=== PATIENT | female | born 1985 ===

== ENCOUNTER → 2019-12-29 | Outpatient (CLI) | payer SELFPAY ==
--- NOTE | 2019-12-29 16:34 | Diagnostic Imaging Report ---
PROCEDURE: US OB SINGLE FETUS <14 WKS. TECHNIQUE: Multiple real-time grayscale images were obtained over the gravid uterus in various projections. INDICATION: Unknown dates. COMPARISON: None. FINDINGS: There is a large heterogeneous hypoechoic lesion in the myometrium of the fundal uterus measuring 7.1 x 6.6 x 5.5 cm, which has the appearance of a fibroid. There is a gestational sac with a normal ovoid morphology. A pole and a yolk sac are seen. The pole measures 1.4 cm in length, corresponding with 7 weeks and 6 days. heart rate measures 173 BPM. Estimated date of delivery by today's ultrasound is 08/10/2020. The right ovary appears normal in size with normal vascularity. The structure thought to represent the left ovary also appears normal in size. No free fluid is seen. IMPRESSION: 1. Single live intrauterine gestation measuring at 7 weeks and 6 days. heart rate is normal. 2. Heterogeneous mass in the uterus, likely a fibroid. Dictated by: Dictated on workstation # [id number]
== END ==
LOC: RAD 13:33
PROVIDERS: ATTEND Family Medicine
DX: O26.891 Other specified pregnancy related conditions, first trimester (principal); N85.8 Other specified noninflammatory disorders of uterus; Z3A.01 Less than 8 weeks gestation of pregnancy
CPT/HCPCS: 76801

== ENCOUNTER 2020-07-18 14:58 | Inpatient (IN) | payer MEDICAID, OTHER ==
[~2020-07-18] VITALS: Ht 157.4 cm; Wt 98.2 kg
[2020-07-18] VITALS (14 sets, daily range): BP systolic 124–148; BP diastolic 62–87
[2020-07-18] MEDS ORDERED: AMPICILLIN FOR IV USE 2,000 MG in WATER (STERILE) FOR INJECTION 14.8 ML IV NR (15:15)
--- NOTE | 2020-07-18 15:20 | NUR ---
GENOVEVA ALY presented to unit via AMBULATION from ED, accompanied by S/O, with c/o LABOR. GENOVEVA ALY weighed, gowned, voided, and to bed. EFHM and TOCO applied, VS taken. GENOVEVA ALY oriented to bed controls, call light, TV, heat, and A/C controls.
[2020-07-18] MEDS ORDERED: D5 LR IV SOLUTION 1,000 ML IV ONE (15:45)
[2020-07-18] MEDS: D5 LR IV SOLUTION 1,000 ML IV SCH (15:57)
[2020-07-18 16:10] LABS: BASOPHILS % (AUTO) 0 % (0-10); EOSINOPHILS # (AUTO) 0.1 10^3/uL (0.0-0.3); EOSINOPHILS % (AUTO) 1 % (0-10); HEMATOCRIT 37 % (35-52); HEMOGLOBIN 12.6 G/DL (11.5-16.0); LYMPHOCYTES # (AUTO) 1.6 X 10^3 (1.0-4.0); LYMPHOCYTES % (AUTO) 14 % (12-44); MEAN CORPUSCULAR HEMOGLOBIN 27 PG (25-34); MEAN CORPUSCULAR HGB CONC 34 G/DL (32-36); MEAN CORPUSCULAR VOLUME 80 FL (80-99); MONOCYTES # (AUTO) 0.9 X 10^3 (0.0-1.0); MONOCYTES % (AUTO) 8 % (0-12); NEUTROPHILS # (AUTO) 8.6 X 10^3 (1.8-7.8); NEUTROPHILS % (AUTO) 77 % (42-75); PLATELET COUNT 271 10^3/uL (130-400); WHITE BLOOD COUNT 11.2 10^3/uL (4.3-11.0)
[2020-07-18] MEDS ORDERED: AMPICILLIN FOR IV USE 1,000 MG/VIAL ONE (19:27)
[2020-07-18] MEDS ORDERED: WATER (STERILE) FOR INJECTION 10 ML ONE (19:27)
[2020-07-18] MEDS: AMPICILLIN FOR IV USE 1,000 MG in WATER (STERILE) FOR INJECTION 7.4 ML IV SCH ×2 (19:45→23:59)
[2020-07-19] VITALS (17 sets, daily range): BP systolic 112–142; BP diastolic 60–89
[2020-07-19] MEDS: D5 LR IV SOLUTION 1,000 ML IV SCH ×3 (00:01→17:40)
[2020-07-19] MEDS: AMPICILLIN FOR IV USE 1,000 MG in WATER (STERILE) FOR INJECTION 7.4 ML IV SCH ×5 (04:10→22:53)
[2020-07-20] VITALS (35 sets, daily range): BP systolic 113–148; BP diastolic 67–91
[2020-07-20] MEDS: D5 LR IV SOLUTION 1,000 ML IV SCH (01:46)
[2020-07-20] MEDS: AMPICILLIN FOR IV USE 1,000 MG in WATER (STERILE) FOR INJECTION 7.4 ML IV SCH ×2 (01:53→05:49)
[2020-07-20] MEDS ORDERED: OXYTOCIN PRE-MIX DRIP 500 ML IV ONE (05:43)
[2020-07-20] MEDS ORDERED: OXYTOCIN PRE-MIX DRIP 500 ML IV SCH ×2 (06:11→09:45)
[2020-07-20] MEDS ORDERED: MINERAL OIL CONCENTRATE 99.9% 15 ML UDC TOP PRN (06:15)
[2020-07-20] MEDS ORDERED: LACTATED RINGERS 1,000 ML IV ONE ×2 (06:35→08:09)
[2020-07-20] MEDS ORDERED: fentaNYL 2 mcg/ml BUPIVA 0.125 100 ML ONE (06:44)
[2020-07-20] MEDS ORDERED: BUPIVACAINE 0.25% 30 ML (SENSORCAINE) VIAL ONE (07:23)
[2020-07-20] MEDS ORDERED: fentaNYL INJECTION 100 MCG/2 ML AMP ONE (07:23)
--- NOTE | 2020-07-20 07:30 | NUR ---
0730 Shaniqua GALLEGO CRNA here for epidural placement. Procedure explained, consent reviewed and signed by anesthesia. Questions answered to patient's satisfaction. Time out taken to verify correct patient/procedure. 0736 Patient up to side of bed, assisted into sitting position. 0739 Betadine prep done x3 and sterile drape applied. 0740 Local done, see anesthesia record. 0745 Test dose given, see anesthesia record for drug and dosage. 0746 Test dose #2 given, see anesthesia record for drug and dosage. Epidural catheter secured in place. Epidural placement complete. 0749 Assisted back into bed, monitors adjusted. Epidural dosed, see anesthesia record. Epidural infusing @10cc/hr stated per pump; see EMAR for further. Patient tolerated procedure well.
[2020-07-20] MEDS ORDERED: fentaNYL 2 mcg/ml BUPIVA 0.125 100 ML IV SCH (08:09)
[2020-07-20] MEDS ORDERED: CATHETER FLUSH 10 ML SYR IV PRN (08:15)
[2020-07-20] MEDS ORDERED: NALOXONE 0.4 MG/ML 1 ML (NARCAN) VIAL IV PRN (08:15)
[2020-07-20] MEDS ORDERED: DOXY25TA56 PO (08:23)
[2020-07-20] MEDS ORDERED: PREN-142 PO (08:23)
[2020-07-20] MEDS ORDERED: PYRI50TA PO (08:23)
--- NOTE | 2020-07-20 08:23 | History & Physical-OB ---
OB - Chief Complaint & HPI Date/Time Date of Admission: Date of Admission: Jul 19, 2020 at 11:01 Date seen by a Provider: Jul 19, 2020 Time Seen by a Provider: 08:00 Chief Complaint/History OB-Reason for Admission/Chief: Onset of Labor Hx : 2 Hx Para: 1 Expected Date of Delivery: Aug 10, 2020 Gestational Age in Weeks: 36 Gestational Age in Days: 5 Indication for induction: other ( labor) Other reason for admission: at 36w5d presented to clinic with complaint of contractions starting around 3 am on 07/19, found to dilated to 6 cm and sent to labor and delivery. Contractions have spaced out and she has not made further cervical change. History of Labs O+, antibody neg, RI. HIV/hepB/RPR NR. Glucola nml. GBS pos. Allergies and Home Medications Allergies Coded Allergies: No Known Drug Allergies (Unverified , 04/04/16) Home Medications No Active Prescriptions or Reported Meds Patient Home Medication List Home Medication List Reviewed: Yes OB - History Hx of Present Care: Yes (Limited, had two first trimester visits, then [place] out of country until third trimester.) Ultrasounds: Normal mid trimester US (incomplete- brain and cord insert subopt imally seen due to US not done until 36 weeks) Information Induced Hypertension: No Maternal Gestational Diabetes: No Hemorrhage: No Obstetrical History Hx : 2 Hx Para: 1 Hx # Term Pregnancies: 1 Hx # Pregnancies: 0 Number of Living Children: 1 Hx Termination: No Hx Multiple Gestation: No Hx Ectopic : No Hx Stillbirth: No Hx Complication: No Hx Induced Hypertens: No Hx Maternal Gestational Diabet: No Hx Hemorrhage: No Delivery History Hx Dystocia: No Hx Forceps Assisted Delivery: No Hx Vacuum Extraction Assisted: No Hx Placenta Abnormality: No Hx Distress: No Hx Large For Gestational Age I: No Hx Small for Gestational Age I: No Hx Section: No Hx Vaginal Delivery Post C-Sec: No Hx Blood Disorders: No Adverse Rxn to Tranfusion: No Patient Past Medical History None Social History/Family History HIV/AIDS: No Recent Infectious Disease Expo: No Sexually Transmitted Disease: No Alcohol Use: Denies Use Recreational Drug Use: No Smoking Cessation: Never smoker Immunizations Tetanus Booster (TDap): Less than 5yrs (06/28/20) Rubella: immune RPR/VDRL: Negative GBS Status: Positive HBsAG: Negative OB - Admission Exam Physical Exam Vitals: Vital Signs 07/20/20 07/20/20 06:27 06:55 Temp 36.8 Pulse 78 Resp 18 B/P (MAP) 131/74 (93) Pulse Ox 98 O2 Delivery Room Air HEENT: NCAT Abdomen: Non tender Extremities: Edema (trace) Cervical Dilatation: 7cm Effacement: 25% Station: -3 Membranes: Intact Heart Rate: 140's Accelerations: Accelerations Present Decelerations: No Decelerations Contractions on Admission: >10 Minutes Apart OB - Assessment/Plan/Diagnosis Assessment Assessment: labor Admission Dx labor/advanced cervical dilation 36 weeks gestation GBS positive Admission Status: Inpatient Order (span 2 midnights) Reason for Inpatient Admission: Anticipated labor, delivery and course Plan Plan: Expectant Management (Given status, will monitor closely and will not augment until full term status, ampicillin for GBS pos.) AMANDA PETE MD Jul 20, 2020 08:23
--- NOTE | 2020-07-20 08:32 | Labor Progress Note ---
Labor Progress Note Labor Progress Note Date Seen by Provider: Jul 20, 2020 Time Seen by Provider: 08:00 Subjective: Pt denies complaints. Objective: (Can we insert 24 hour vitals here?) Cervical exam: /- Consistency: soft Position: anterior Presentation: vertex heart tones: 150 beats per minute, moderate variability, reactive Tocometer: 1-2 ctx/10 minutes Assessment/Plan: Yaa Wilkes is a 35 /Para 2 / 1,Gestational Age (wks)37w0d here for advanced cervical dilation with contractions, now full term. CEFM/TOCO Pitocin for augmentation Anesthesia: Epidural Anticipate vaginal delivery. Vitals - Labs Vital Signs - I&O Vital Signs Date Time Temp Pulse Resp B/P (MAP) Pulse Ox O2 Delivery O2 Flow Rate FiO2 07/20/20 06:55 78 18 131/74 (93) Room Air 07/20/20 06:40 83 18 133/83 (100) Room Air 07/20/20 06:27 36.8 82 18 126/91 (103) 98 Room Air 07/19/20 20:31 36.9 88 18 139/88 (105) Room Air 07/19/20 17:15 36.3 82 18 126/67 (86) Room Air 07/19/20 15:10 106 18 131/73 (92) Room Air 07/19/20 14:10 81 18 133/75 (94) Room Air 07/19/20 13:10 95 18 124/69 (87) Room Air 07/19/20 12:10 91 18 122/78 (93) Room Air 07/19/20 11:10 90 18 125/60 (81) Room Air 07/19/20 10:10 88 16 128/72 (90) Room Air 07/19/20 09:10 100 16 127/80 (96) Room Air I & O 07/20/20 07:00 Intake Total 1022.2 ml Balance 1022.2 ml AMANDA PETE MD Jul 20, 2020 08:31
--- NOTE | 2020-07-20 09:19 | OB Labor & Delivery Record ---
Vag Delivery Note Vag Delivery Note Date of Delivery: 07/20/20 Preoperative Diagnosis: Yaa Wilkes is a 35 /Para 2 / 1,Gestational Age (wks) 37 weeks 0 days Postoperative Diagnosis: Same Surgeon: AMANDA PETE Anesthesia: Epidural Delivery Type: Findings: Viable male , apgars 8/9, weight pending Lacerations: periurethral abrasion, left vaginal wall Intact placenta with 3 vessel cord. No nuchal cord, body cord or shoulder dystocia Estimated Blood Loss: 200 ml Complications: None Condition: Stable Description of Procedure: The patient is a 35 year old female who presented in labor at 36w5d, she was monitored and slowly progressed from 6 to 7, when she reached 37 weeks, AROM done and pitocin started. Her labor course was remarkable for rapid progression after AROM. She progressed to complete dilatation and began to push. She was then set up for delivery. The infant's head was delivered atraumatically in the BOBBI position. The shoulders and remainder of the 's body were then delivered without difficulty. Upon delivery, the was vigorous and placed on maternal abdomen. After a delay, the cord was doubly clamped and cut and the infant was handed off to the pediatric staff. An intact placenta with 3-vessel cord delivered via Mary and there was found to be minimal bleeding.~ Vigorous fundal massage was performed and the fundus was found to be firm. IV oxytocin was given. Examination of the vagina and perineum revealed a left vaginal wall laceration repaired in the simple running fashion with 3-0 vicryl rapide suture. Following the repair, sponge, instrument and needle counts were correct. Mom and baby were both in stable condition in the labor suite. Vitals - Labs Vital Signs - I&O Vital Signs Date Time Temp Pulse Resp B/P (MAP) Pulse Ox O2 Delivery O2 Flow Rate FiO2 07/20/20 06:55 78 18 131/74 (93) Room Air 07/20/20 06:40 83 18 133/83 (100) Room Air 07/20/20 06:27 36.8 82 18 126/91 (103) 98 Room Air 07/19/20 20:31 36.9 88 18 139/88 (105) Room Air 07/19/20 17:15 36.3 82 18 126/67 (86) Room Air 07/19/20 15:10 106 18 131/73 (92) Room Air 07/19/20 14:10 81 18 133/75 (94) Room Air 07/19/20 13:10 95 18 124/69 (87) Room Air 07/19/20 12:10 91 18 122/78 (93) Room Air 07/19/20 11:10 90 18 125/60 (81) Room Air 07/19/20 10:10 88 16 128/72 (90) Room Air I & O 07/20/20 06:59 Intake Total 1022.2 ml Balance 1022.2 ml AMANDA PETE MD Jul 20, 2020 09:19
[2020-07-20] MEDS ORDERED: MEASLES,MUMPS,RUBELLA 1 EA INJ SQ ONE (09:45)
[2020-07-20] MEDS ORDERED: BENZOCAINE/MENTHOL (DERMOPLAST) 60 ML CAN TP PRN (09:45)
[2020-07-20] MEDS ORDERED: WITCH HAZEL(TUCKS) 40 EA JAR TOP PRN (09:45)
[2020-07-20] MEDS ORDERED: TETANUS,DIPTH,PERTUSS P/F (BOOSTRIX) 0.5 ML VIAL IM ONE (09:45)
--- NOTE | 2020-07-20 10:39 | NUR ---
REFER TO LABOR FLOW SHEET.
[2020-07-20] MEDS ORDERED: IBUPROFEN 600 MG (MOTRIN) TAB PO SCH (12:00)
--- NOTE | 2020-07-20 13:00 | NUR ---
PT TRANSFERRED FROM -318 TO -309 VIA AMBULATORY IN STABLE CONDITION ACCOMPANIED BY THIS RN, , AND FOB. PT REQUEST NO NEEDS AT THIS TIME. CALL LIGHT IN REACH.
[2020-07-20] MEDS ORDERED: CATHETER FLUSH 10 ML SYR IV SCH ×2 (14:00)
[2020-07-20] MEDS ORDERED: DOCUSATE SODIUM 100 MG (COLACE) CAP PO SCH (21:00)
[2020-07-21 01:00] VITALS: BP 126/90
[2020-07-21 05:15] VITALS: BP 126/90
[2020-07-21 05:18] LABS: BASOPHILS % (AUTO) 0 % (0-10); EOSINOPHILS # (AUTO) 0.1 10^3/uL (0.0-0.3); EOSINOPHILS % (AUTO) 1 % (0-10); HEMATOCRIT 33 % (35-52); HEMOGLOBIN 10.8 G/DL (11.5-16.0); LYMPHOCYTES # (AUTO) 2.8 X 10^3 (1.0-4.0); LYMPHOCYTES % (AUTO) 20 % (12-44); MEAN CORPUSCULAR HEMOGLOBIN 27 PG (25-34); MEAN CORPUSCULAR HGB CONC 33 G/DL (32-36); MEAN CORPUSCULAR VOLUME 81 FL (80-99); MEAN PLATELET VOLUME 10.9 FL (7.4-10.4); MONOCYTES # (AUTO) 0.9 X 10^3 (0.0-1.0); MONOCYTES % (AUTO) 6 % (0-12); NEUTROPHILS # (AUTO) 10.3 X 10^3 (1.8-7.8); NEUTROPHILS % (AUTO) 73 % (42-75); PLATELET COUNT 236 10^3/uL (130-400); WHITE BLOOD COUNT 14.1 10^3/uL (4.3-11.0)
[2020-07-21 06:15] LABS: ATYPICAL LYMPHOCYTES 4 %; BAND NEUTROPHILS 1 %; EOSINOPHILS % (MANUAL) 1 %; LYMPHOCYTES % (MANUAL) 15 %; MONOCYTES % (MANUAL) 4 %; NEUTROPHILS % (MANUAL) 75 %; POLYCHROMASIA SLIGHT
[2020-07-21 06:16] LABS: ANISOCYTOSIS SLIGHT
--- NOTE | 2020-07-21 08:38 | Discharge Inst-Women's Service ---
Discharge Inst-Women's Serv Depart Medication/Instructions Instructions may have ibuprofen [id number] 200 mg tablets, 2 or 3 every 6 hours as needed for uterine cramps. Problems Reviewed?: Yes Consults/Follow Up Additional Follow Up: Yes (Dr. Huitron in 6 weeks) Activity Driving Instructions: No Driving for 1 Week Nothing Inside Vagina: No Mead (for 6 weeks) Diet Discharge Diet: Regular Diet Return to The Hospital For: as below Symptoms to Report to : Bleeding Excessive, Pain Increased, Fever Over 101 Degrees F, Vaginal Discharge Foul For Any Problems or Questions: Contact Your Physician SAMANTHA NORWOOD MD Jul 21, 2020 08:38
--- NOTE | 2020-07-21 08:41 | Discharge Summary ---
Diagnosis/Chief Complaint Date of Admission Jul 19, 2020 at 11:01 Date of Discharge July 21, 2020 Admission Diagnosis Admission Diagnosis 1. Intrauterine at 36 weeks Discharge Diagnosis 1. Intrauterine at 36 weeks gestation Chief Complaint/HPI Chief Complaint/HPI 35-year-old 2 now term 2 who initially presented to labor and delivery d uring the morning of July 19, 2020. She was at 36 weeks and 5 days gestation. She presented with 3 cm dilated and went on to 6 cm dilated. She ultimately was For labor and delivery. Discharge Summary-OBS Procedures 1. Epidural per anesthesia 2. Spontaneous vaginal delivery, per Dr. Huitron Discharge Physical Examination Allergies: Coded Allergies: No Known Drug Allergies (Unverified , 04/04/16) Vitals & I&Os Vital Sign - Last 12Hours Date Time Temp Pulse Resp B/P (MAP) Pulse Ox O2 Delivery O2 Flow Rate FiO2 07/21/20 05:15 36.6 90 16 126/90 (102) 99 Room Air General Appearance: No Acute Distress Respiratory: Clear to Auscultation Cardiovascular: Regular Rate Abdominal: Soft (with uterus firm) Skin: No Rashes Hospital Course Was the Problem List Reviewed?: Yes patient was admitted and ultimately underwent labor coarse. She received epidural per anesthesia and tolerated well. Ultimately she went on to deliver spontaneous vaginal during the morning of July 20, 2020. Patient delivered a term viable male with Apgars of 8 at 1 minute and 9 at 5 minutes. She was noted to have a periurethral tear but no perineal lacerations. Following delivery she underwent routine care orders. She had no complications following delivery. There was no shortness of breath or leg pain. She tolerated regular diet and was ambulatory. Her hemoglobin day after delivery was 10.8 compared to admission of 12.6. She was eager for dismissal in the morning of July 21. Labs Laboratory Tests 07/21/20 05:10: White Blood Count 14.1H, Red Blood Count 4.06L, Hemoglobin 10.8L, Hematocrit 33L , Mean Corpuscular Volume 81, Mean Corpuscular Hemoglobin 27, Mean Corpuscular Hemoglobin Concent 33, Red Cell Distribution Width 15.0H, Platelet Count 236, Mean Platelet Volume 10.9H, Neutrophils (%) (Auto) 73, Lymphocytes (%) (Auto) 20, Monocytes (%) (Auto) 6, Eosinophils (%) (Auto) 1, Basophils (%) (Auto) 0, Neutrophils # (Auto) 10.3H, Lymphocytes # (Auto) 2.8, Monocytes # (Auto) 0.9, Eosinophils # (Auto) 0.1, Basophils # (Auto) 0.0, Neutrophils % (Manual) 75, Lymphocytes % (Manual) 15, Monocytes % (Manual) 4, Eosinophils % (Manual) 1, Band Neutrophils 1, Atypical Lymphocytes 4, Polychromasia SLIGHT, Basophilic Stippling SLIGHT, Anisocytosis SLIGHT Discharge Instructions to patient/family Please see electronic discharge instructions given to patient. Discharge Medications Reviewed and agree with Discharge Medication list on patient's Discharge Instruction sheet Clinical Quality Measures DVT/VTE Risk/Contraindication: Risk Factor Score Per Nursin RFS Level Per Nursing on Admit: 1=Low/No VTE PPX SAMANTHA NORWOOD MD Jul 21, 2020 08:41
[2020-07-21 09:35] VITALS: BP 122/81
--- NOTE | 2020-07-21 22:51 | Anesthesia-Regional Post-Op ---
Regional Patient Condition Mental Status: Alert, Oriented x3 Circulation: Same as Pre-Op Headache: Absent Sensation: Full Recovery Motor Block: Absent Post Op Complications Complications None Follow Up Care/Instructions Patient Instructions None needed. Anesthesia/Patient Condition Patient is doing well, no complaints, stable vital signs, no apparent adverse anesthesia problems. No complications reported per nursing. HYACINTH SANTOS CRNA Jul 21, 2020 22:51
== END 2020-07-21 14:40 | disposition home or self-care (01) | DRG 768 ==
LOC: LDRP 14:58 → WSo 14:58 → LDRP 07-19 11:00 → UNDOADMOB 07-19 11:01 → OBSVTOIN 07-19 11:01 → LDRP 07-19 11:01 → INTOOBSV 07-19 11:01 → LDRP 07-20 13:00 → UNDODISIN 07-21 14:40 → EDSTATUS 07-22 07:29
PROVIDERS: ADMIT Family Medicine; ATTEND Family Medicine
PROC: 10E0XZZ Delivery of Products of Conception, External Approach (ICD-10-PCS; principal; 2020-07-20)
PROC: 0UQG0ZZ Repair Vagina, Open Approach (ICD-10-PCS; 2020-07-20)
DX: O99.824 Streptococcus B carrier state complicating childbirth (principal); Z37.0 Single live birth; O71.4 Obstetric high vaginal laceration alone; Z3A.37 37 weeks gestation of pregnancy
CPT/HCPCS: 36415; 85007; 85025; 85027; 86850; 86900; 86901; 88307

== ENCOUNTER 2021-07-04 10:31 | Emergency (ER) | payer MEDICAID ==
[~2021-07-04] VITALS: Ht 160 cm; Wt 72.5 kg
[~2021-07-04 10:31] MED LIST: DOXY25TA56 PO; PREN-142 PO; PYRI50TA PO
[2021-07-04] MEDS ORDERED: HYDROcodone/APAP 5 MG/325 MG (LORTAB) TAB ONE (10:52)
[2021-07-04 11:00] LABS: BASOPHILS % (AUTO) 0 % (0-10); EOSINOPHILS % (AUTO) 0 % (0-10); HEMATOCRIT 48 % (35-52); HEMOGLOBIN 15.7 g/dL (11.5-16.0); LYMPHOCYTES # (AUTO) 1.1 10^3/uL (1.0-4.0); LYMPHOCYTES % (AUTO) 15 % (12-44); MEAN CORPUSCULAR HEMOGLOBIN 27 pg (25-34); MEAN CORPUSCULAR HGB CONC 32 g/dL (32-36); MEAN CORPUSCULAR VOLUME 82 fL (80-99); MEAN PLATELET VOLUME 9.8 fL (9.0-12.2); MONOCYTES # (AUTO) 0.4 10^3/uL (0.0-1.0); MONOCYTES % (AUTO) 6 % (0-12); NEUTROPHILS # (AUTO) 5.6 10^3/uL (1.8-7.8); NEUTROPHILS % (AUTO) 78 % (42-75); PLATELET COUNT 210 10^3/uL (130-400); WHITE BLOOD COUNT 7.1 10^3/uL (4.3-11.0)
[2021-07-04] MEDS ORDERED: HYDROcodone/APAP 5 MG/325 MG (LORTAB) TAB PO ONE (11:00)
--- NOTE | 2021-07-04 11:01 | Diagnostic Imaging Report ---
INDICATION: Covid positive, cough and shortness of breath. TECHNIQUE: A frontal chest was obtained at 10:54 AM. FINDINGS: The heart and mediastinal silhouette are normal in appearance. There is some minimal left perihilar infiltrate and right basilar infiltrate. There is no pneumothorax or pleural fluid. IMPRESSION: Minimal left perihilar and right basilar infiltrates, suspect pneumonia. The report was faxed to Infection Control by [email or web address]@10:59 AM. Dictated by: Dictated on workstation # [id number]
--- NOTE | 2021-07-04 11:07 | ED Cough/URI ---
General Chief Complaint: Cough/Cold/Flu Symptoms Stated Complaint: COVID +,SOB,CP,COUGH Source: patient Exam Limitations: no limitations (MELIZA MARRERO APRN) History of Present Illness Date Seen by Provider: Jul 04, 2021 Time Seen by Provider: 11:06 Initial Comments To ER with reports that she has been feeling ill for about 2 weeks, she tested positive for Covid at counts include [facility] beds at the [facility] on Thursday. Timing/Duration: getting worse Severity/Quality: dry cough Associated Symptoms: cough (MELIZA MARRERO APRN) Allergies and Home Medications Allergies Coded Allergies: No Known Drug Allergies (Unverified , 04/04/16) Home Medications Dexamethasone 6 Mg Tablet, 6 MG PO DAILY Prescribed by: MELIZA MARRERO on 07/04/21 1409 Doxylamine Succinate 25 Mg Tablet, 12.5 MG PO HS PRN for NAUSEA-1ST LINE, (Reported) Hydrocodone/Acetaminophen 1 Each Tablet, 1 TAB PO Q4H PRN for cough Prescribed by: MELIZA MARRERO on 07/04/21 1409 Pyridoxine HCl 50 Mg Tablet, 50 MG PO TID, (Reported) Patient Home Medication List Home Medication List Reviewed: Yes (MELIZA MARRERO APRN) Review of Systems Review of Systems Constitutional: see HPI, malaise, weakness EENTM: see HPI Respiratory: see HPI, cough Cardiovascular: no symptoms reported Genitourinary: no symptoms reported Musculoskeletal: no symptoms reported Skin: no symptoms reported Psychiatric/Neurological: No Symptoms Reported Hematologic/Lymphatic: No Symptoms Reported (MELIZA MARRERO APRN) Past Whbkpnt-Syaicb-Nekfbo Hx Immunizations Up To Date Tetanus Booster (TDap): Less than 5yrs (MELIZA MARRERO APRN) Seasonal Allergies Seasonal Allergies: No (MELIZA MARRERO APRN) Past Medical History Surgeries: No Respiratory: No Cardiac: No Neurological: No Reproductive Disorders: No Sexually Transmitted Disease: No HIV/AIDS: No Gastrointestinal: No Musculoskeletal: No Endocrine: No Cancer: No Psychosocial: No Integumentary: No Blood Disorders: No Adverse Reaction/Blood Tranf: No (MELIZA MARRERO APRN) Family Medical History Patient reports no known family medical history. Physical Exam Vital Signs - First Documented 07/04/21 10:37 Temp 37.1 Pulse 135 Resp 18 B/P (MAP) 160/101 (120) Pulse Ox 95 O2 Delivery Room Air (JAZ VANN MD) Capillary Refill : (MELIZA MARRERO APRN) Height: 5'4.00" Weight: 206lbs. 0.0oz. 93.300572qp; 39.63 BMI Method: General Appearance: WD/WN, no apparent distress, other (Diaphoretic. Heart rat e 127 oxygen 95% on room air blood pressure 160/101.) Eyes: Bilateral Eye Normal Inspection, Bilateral Eye PERRL, Bilateral Eye EOMI HEENT: PERRL/EOMI, normal ENT inspection Neck: non-tender, full range of motion Respiratory: no respiratory distress, no accessory muscle use Cardiovascular: no murmur, tachycardia Gastrointestinal: normal bowel sounds, non tender, soft Extremities: normal range of motion, non-tender Neurologic/Psychiatric: alert, normal mood/affect, oriented x 3 Skin: normal color, warm/dry (MELIZA MARRERO APRN) Progress/Results/Core Measures Suspected Sepsis SIRS Temperature: Pulse: Respiratory Rate: Laboratory Tests 07/04/21 10:45: White Blood Count 7.1 Blood Pressure / Mean: Laboratory Tests 07/04/21 10:45: Creatinine 0.75, Platelet Count 210, Total Bilirubin 0.8 (MELIZA MARRERO APRN) Results/Orders Lab Results Laboratory Tests Test 07/04/21 10:35 07/04/21 10:45 Range/Units Serum Test, Qualitative NEGATIVE NEGATIVE White Blood Count 7.1 4.3-11.0 10^3/uL Red Blood Count 5.93 H 3.80-5.11 10^6/uL Hemoglobin 15.7 11.5-16.0 g/dL Hematocrit 48 35-52 % Mean Corpuscular Volume 82 80-99 fL Mean Corpuscular Hemoglobin 27 25-34 pg Mean Corpuscular Hemoglobin Concent 32 32-36 g/dL Red Cell Distribution Width 13.8 10.0-14.5 % Platelet Count 210 130-400 10^3/uL Mean Platelet Volume 9.8 9.0-12.2 fL Immature Granulocyte % (Auto) 0 % Neutrophils (%) (Auto) 78 H 42-75 % Lymphocytes (%) (Auto) 15 12-44 % Monocytes (%) (Auto) 6 0-12 % Eosinophils (%) (Auto) 0 0-10 % Basophils (%) (Auto) 0 0-10 % Neutrophils # (Auto) 5.6 1.8-7.8 10^3/uL Lymphocytes # (Auto) 1.1 1.0-4.0 10^3/uL Monocytes # (Auto) 0.4 0.0-1.0 10^3/uL Eosinophils # (Auto) 0.0 0.0-0.3 10^3/uL Basophils # (Auto) 0.0 0.0-0.1 10^3/uL Immature Granulocyte # (Auto) 0.0 0.0-0.1 10^3/uL D-Dimer 0.77 H 0.00-0.49 UG/ML Sodium Level 141 135-145 MMOL/L Potassium Level 2.7 L 3.6-5.0 MMOL/L Chloride Level 103 98-107 MMOL/L Carbon Dioxide Level 25 21-32 MMOL/L Anion Gap 13 5-14 MMOL/L Blood Urea Nitrogen 8 7-18 MG/DL Creatinine 0.75 0.60-1.30 MG/DL Estimat Glomerular Filtration Rate 88 BUN/Creatinine Ratio 11 Glucose Level 125 H 70-105 MG/DL Calcium Level 9.4 8.5-10.1 MG/DL Corrected Calcium 9.4 8.5-10.1 MG/DL Total Bilirubin 0.8 0.1-1.0 MG/DL Aspartate Amino Transf (AST/SGOT) 43 H 5-34 U/L Alanine Aminotransferase (ALT/SGPT) 29 0-55 U/L Alkaline Phosphatase 69 40-136 U/L C-Reactive Protein High Sensitivity 2.42 H 0.00-0.50 MG/DL Total Protein 8.1 6.4-8.2 GM/DL Albumin 4.0 3.2-4.5 GM/DL (JAZ VANN MD) Medications Given in ED Current Medications Medications Dose Ordered Sig/Terrie Route Start Time Stop Time Status Last Admin Dose Admin Acetaminophen/ Hydrocodone Bitart 1 ea ONCE ONCE PO 07/04/21 11:00 07/04/21 11:01 DC 07/04/21 10:50 1 EA Dexamethasone Sodium Phosphate 10 mg ONCE ONCE IV 07/04/21 11:45 07/04/21 11:46 DC 07/04/21 12:15 10 MG Iohexol 75 ml ONCE ONCE IV 07/04/21 12:30 07/04/21 12:31 DC 07/04/21 13:12 75 ML Potassium Chloride 40 meq ONCE ONCE PO 07/04/21 11:45 07/04/21 11:46 DC 07/04/21 12:15 40 MEQ Potassium Chloride 50 ml @ 50 mls/hr ONCE ONCE IV 07/04/21 11:45 07/04/21 12:44 DC 07/04/21 12:16 50 MLS/HR Sodium Chloride 10 ml NEEDED PRN IV 07/04/21 12:30 07/04/21 14:42 DC 07/04/21 13:12 10 ML Sodium Chloride 100 ml ONCE ONCE IV 07/04/21 12:30 07/04/21 12:31 DC 07/04/21 13:12 80 ML Sodium Chloride 1,000 ml @ 999 mls/hr ONCE ONCE IV 07/04/21 12:15 07/04/21 13:15 DC 07/04/21 12:23 999 MLS/HR (JAZ VANN MD) Vital Signs/I&O 07/04/21 07/04/21 07/04/21 10:37 10:37 14:40 Temp 37.1 37.1 Pulse 135 98 Resp 18 18 B/P (MAP) 160/101 (120) 135/92 (120) Pulse Ox 95 95 O2 Delivery Room Air Room Air (JAZ VANN MD) Vital Signs/I&O Capillary Refill : (MELIZA MARRERO APRN) Diagnostic Imaging Diagonstic Imaging: Xray Comments NAME: GENOVEVA ALY [facility] REC#: [id number] PT STATUS: REG ER : 1985 PHYSICIAN: MELIZA MARRERO APRN ADMIT DATE: 07/04/21/ER Draft Date of Exam:07/04/21 CHEST 1 VIEW, AP/PA ONLY INDICATION: Covid positive, cough and shortness of breath. TECHNIQUE: A frontal chest was obtained at 10:54 AM. FINDINGS: The heart and mediastinal silhouette are normal in appearance. There is some minimal left perihilar infiltrate and right basilar infiltrate. There is no pneumothorax or pleural fluid. IMPRESSION: Minimal left perihilar and right basilar infiltrates, suspect pneumonia. The report was faxed to Infection Control by [email or web address]@10:59 AM. Dictated on workstation # [id number] Dict: 07/04/21 1058 Trans: 07/04/21 1101 [id number] Interpreted by: GEOVANNY DODEG MD Electronically signed by: NAME: GENOVEVA ALY [facility] REC#: [id number] PT STATUS: REG ER : 1985 PHYSICIAN: MELIZA MARRERO APRN ADMIT DATE: 07/04/21/ER Draft Date of Exam:07/04/21 CT ANGIO CHEST W EXAMINATION: CT angiography of the chest. TECHNIQUE: Contrast enhanced thin section helical images were obtained through the chest with intravenous contrast timed for the optimal opacification of the arterial structures per CTA protocol. Post-processing, reconstructions and interpretation of angiographic images of the vessels was performed. 3D MIP reconstructions were performed and reviewed. All CT scans use one or more of the following dose optimizing techniques: automated exposure control, MA and/or KvP adjustment based on a patient size and exam type, or iterative reconstruction. HISTORY: Elevated d-dimer and shortness of breath, Covid-19. COMPARISON: None available. FINDINGS: There is no pulmonary embolism. There is moderate peripheral groundglass consistent with Covid-19. No pleural effusion. No pneumothorax. No suspicious nodules. There is no axillary or supraclavicular lymphadenopathy. There is no mediastinal lymphadenopathy. Heart size is normal. There are no coronary artery calcifications. No pericardial effusion. Aorta is normal in caliber. Limited views of the upper abdomen are unremarkable. There are no suspicious osseous lesions. IMPRESSION: 1. No pulmonary embolism. 2. Moderate Covid-19 pneumonia. Dictated on workstation # [id number] Dict: 07/04/21 1320 Trans: 07/04/21 1328 [id number] Interpreted by: SUSANNA BASS MD Electronically signed by: (MELIZA MARRERO APRN) Departure Communication (Admissions) 1411-heart rate is down to 100, oxygen 98% on room air. She states that she is feeling better. (MELIZA MARRERO APRN) Impression Primary Impression: COVID-19 Disposition: 01 HOME, SELF-CARE Condition: Stable Departure-Patient Inst. Decision time for Depature: 13:39 (MELIZA MARRERO APRN) Referrals: AMANDA PETE MD (PCP/Family) Primary Care Physician Patient Instructions: COVID-19 ED Scripts Hydrocodone/Acetaminophen (Hydrocodone-Acetamin 5-325 mg) 1 Each Tablet 1 TAB PO Q4H PRN for cough, #14 TAB Prov: MELIZA MARRERO APRN 07/04/21 Dexamethasone (Decadron) 6 Mg Tablet 6 MG PO DAILY, #5 TAB Prov: MELIZA MARRERO APRN 07/04/21 ATTENDING PHYSICIAN NOTE: I was physically present as attending physician in the emergency department during the care of this patient, but I was not directly involved in the decision making or delivery of care for this patient. (JAZ VANN MD) MELIZA MARRERO APRN Jul 04, 2021 11:07 JAZ VANN MD Jul 04, 2021 19:25
[2021-07-04 11:27] LABS: BILIRUBIN,TOTAL 0.8 MG/DL (0.1-1.0); CALCIUM 9.4 MG/DL (8.5-10.1); CREATININE SERUM 0.75 MG/DL (0.60-1.30); POTASSIUM 2.7 MMOL/L (3.6-5.0); TOTAL PROTEIN 8.1 GM/DL (6.4-8.2)
[2021-07-04] MEDS ORDERED: LACTATED RINGERS 1,000 ML IV SCH (11:30)
[2021-07-04] MEDS ORDERED: KCL 20 MEQ TAB (K-DUR) PO ONE (11:45)
[2021-07-04] MEDS ORDERED: POTASSIUM CL 10MEQ/50ML IVPB 50 ML IV ONE (11:45)
[2021-07-04] MEDS ORDERED: NS IV 1000 ML 1,000 ML IV ONE (12:15)
[2021-07-04] MEDS ORDERED: IOHEXOL 350 MG/ML 100 ML (OMNIPAQUE 350) VIAL IV ONE (12:30)
[2021-07-04] MEDS ORDERED: CATHETER FLUSH 10 ML SYR IV PRN (12:30)
[2021-07-04] MEDS ORDERED: HOLD METFORMIN - RECEIVED CONTRAST 20 ML VIAL IV SCH (12:30)
[2021-07-04] MEDS ORDERED: NS 100 ML (IVPB) BAG IV ONE (12:30)
--- NOTE | 2021-07-04 13:28 | Diagnostic Imaging Report ---
EXAMINATION: CT angiography of the chest. TECHNIQUE: Contrast enhanced thin section helical images were obtained through the chest with intravenous contrast timed for the optimal opacification of the arterial structures per CTA protocol. Post-processing, reconstructions and interpretation of angiographic images of the vessels was performed. 3D MIP reconstructions were performed and reviewed. All CT scans use one or more of the following dose optimizing techniques: automated exposure control, MA and/or KvP adjustment based on a patient size and exam type, or iterative reconstruction. HISTORY: Elevated d-dimer and shortness of breath, Covid-19. COMPARISON: None available. FINDINGS: There is no pulmonary embolism. There is moderate peripheral groundglass consistent with Covid-19. No pleural effusion. No pneumothorax. No suspicious nodules. There is no axillary or supraclavicular lymphadenopathy. There is no mediastinal lymphadenopathy. Heart size is normal. There are no coronary artery calcifications. No pericardial effusion. Aorta is normal in caliber. Limited views of the upper abdomen are unremarkable. There are no suspicious osseous lesions. IMPRESSION: 1. No pulmonary embolism. 2. Moderate Covid-19 pneumonia. Dictated by: Dictated on workstation # [id number]
[2021-07-04] MEDS ORDERED: DEXA6TAB6 PO (14:09)
[2021-07-04] MEDS ORDERED: ACHD5005 PO (14:09)
[2021-07-04 14:40] VITALS: BP 135/92
== END 2021-07-04 14:40 | disposition home or self-care (01) ==
LOC: EDUNIT# 10:31 → ER 10:33
DX: U07.1 COVID-19 (principal)
CPT/HCPCS: 36415; 71045; 71275; 80053; 84703; 85025; 85379; 86141